=== PATIENT | female | born 1935 | race Caucasian/White ===

== ENCOUNTER 2022-02-23 20:44 | Emergency (ER) | payer MEDICARE ==
[~2022-02-23] VITALS: Ht 152.4 cm; Wt 54.0 kg
--- NOTE | 2022-02-23 23:01 | NUR ---
[facility] ETA: 90 MIN. REPROT GIVEN TO FELISA AT THE FACILITY
[2022-02-23] MEDS ORDERED: ACETAMINOPHEN 325 MG TABLET ONE (23:27)
[2022-02-23] MEDS ORDERED: ACETAMINOPHEN 325 MG TABLET PO ONE (23:30)
[2022-02-23] MEDS ORDERED: TRAM50TA2 PO (23:39)
--- NOTE | 2022-02-24 00:43 | NUR ---
[facility] AT BED SIDE TO [employer] WORKER THE PT
--- NOTE | 2022-02-24 01:09 | NUR ---
PT WAS TRANSFERRED BACK TO THE FACILITY IN STABLE CONDTION
[2022-02-24 01:20] VITALS: BP 159/77
== END 2022-02-24 01:10 ==
LOC: ER 21:01
DX: S02.2XXA Fracture of nasal bones, initial encounter for closed fracture (principal); S00.11XA Contusion of right eyelid and periocular area, initial encounter; R04.0 Epistaxis; W18.30XA Fall on same level, unspecified, initial encounter; Y93.89 Activity, other specified; Y92.89 Other specified places as the place of occurrence of the external cause; Y99.8 Other external cause status
CPT/HCPCS: 99284; 70450; 70486; A6403

== ENCOUNTER 2022-07-21 19:46 | Emergency (ER) | payer MEDICARE ==
[~2022-07-21] VITALS: Ht 154.9 cm; Wt 45.4 kg
[~2022-07-21 19:46] MED LIST: TRAM50TA2 PO
--- NOTE | 2022-07-21 20:10 | NUR ---
[id number] THE [facility]AG C/O L CLAVICLE PAIN S/P FELL OF CHAIR. -KO +DEFORMITY, PT IS ALERT AND ORIENTED. RR EVEN AND NON LABORED. CONNECTED TO MONITOR
--- NOTE | 2022-07-21 21:50 | NUR ---
[facility] CALLED FOR BLS GOING BACK TO SNF PER ISABEL COATS 90 MIN
[2022-07-21] MEDS ORDERED: ACETAMINOPHEN 325 MG TABLET PO ONE (22:30)
[2022-07-21] MEDS ORDERED: ACETAMINOPHEN 325 MG TABLET ONE (22:49)
--- NOTE | 2022-07-21 23:06 | NUR ---
[facility] AT BEDSIDE FOR TRANSPORT TO [facility].
[2022-07-21 23:17] VITALS: BP 146/81
== END 2022-07-21 23:18 ==
LOC: ER 19:50
DX: S46.912A Strain of unspecified muscle, fascia and tendon at shoulder and upper arm level, left arm, initial encounter (principal); S09.90XA Unspecified injury of head, initial encounter; G20 Parkinson's disease; I10 Essential (primary) hypertension; Z79.899 Other long term (current) drug therapy; W07.XXXA Fall from chair, initial encounter; Y93.89 Activity, other specified; Y92.89 Other specified places as the place of occurrence of the external cause; Y99.8 Other external cause status
CPT/HCPCS: 70450-TC; 73030-TC

== ENCOUNTER 2023-06-08 07:34 | Emergency (ER) | payer MEDICARE ==
[~2023-06-08] VITALS: Ht 154.9 cm; Wt 44.0 kg
[2023-06-08 08:22] LABS: BASOPHILS % (AUTO) 0.6 % (0.0-2.0); EOSINOPHILS # (AUTO) 0.2 K/uL (0.0-0.7); EOSINOPHILS % (AUTO) 2.4 % (0.0-6.0); HEMATOCRIT 44 % (33-45); HEMOGLOBIN 14.4 g/dL (11.5-14.8); LYMPHOCYTES # (AUTO) 0.7 K/uL (0.8-4.8); LYMPHOCYTES % (AUTO) 8.7 % (20.0-44.0); MEAN CORPUSCULAR HEMOGLOBIN 30 PG (26.0-33.0); MEAN CORPUSCULAR HGB CONC 33 g/dl (31.0-36.0); MEAN CORPUSCULAR VOLUME 93 fL (82-100); MONOCYTES # (AUTO) 0.7 K/uL (0.1-1.30); NEUTROPHILS # (AUTO) 5.9 K/uL (1.8-8.9); NEUTROPHILS % (AUTO) 78.3 % (43.0-81.0); PLATELET COUNT (AUTO) 226 K/uL (150-450); RED BLOOD CELL COUNT(AUTO) 4.79 MIL/uL (4.0-5.2); RED CELL DISTRIBUTION WIDTH 15.8 % (11.5-15.0); WHITE BLOOD COUNT (AUTO) 7.5 K/uL (4.3-11.0)
[2023-06-08 08:31] LABS: CALCIUM, SERUM 9.3 mg/dL (8.5-10.1); CARBON DIOXIDE 25 mmol/L (21-32); CHLORIDE 101 mmol/L (98-107); CREATININE 0.6 mg/dL (0.6-1.3); GLUCOSE 98 mg/dL (74-106); SODIUM SERUM 135 mmol/L (136-145); UREA NITROGEN, BLOOD 12 mg/dL (7-18)
[2023-06-08 12:52] VITALS: BP 173/87; TEMP 98.2; O2SAT 97
== END 2023-06-08 12:52 ==
LOC: ER 07:36
DX: S32.010A Wedge compression fracture of first lumbar vertebra, initial encounter for closed fracture (principal); S22.080A Wedge compression fracture of T11-T12 vertebra, initial encounter for closed fracture; G89.29 Other chronic pain; M54.50 Low back pain, unspecified; G20.A1 Parkinson's disease without dyskinesia, without mention of fluctuations; I10 Essential (primary) hypertension; W18.30XA Fall on same level, unspecified, initial encounter; Y93.89 Activity, other specified; Y92.89 Other specified places as the place of occurrence of the external cause; Y99.8 Other external cause status
CPT/HCPCS: 36415; 70450-TC; 71045-TC; 71250-TC; 72125-TC; 80048-TC; 84484-TC; 85025-TC

== ENCOUNTER 2024-07-30 15:49 | Emergency (ER) | payer MEDICARE ==
[~2024-07-30] VITALS: Ht 157.5 cm; Wt 54.4 kg
[2024-07-30 16:32] LABS: BASOPHILS % (AUTO) 0.6 % (0.0-2.0); EOSINOPHILS # (AUTO) 0.1 K/uL (0.0-0.7); EOSINOPHILS % (AUTO) 1.5 % (0.0-6.0); HEMATOCRIT 43 % (33-45); HEMOGLOBIN 14.2 g/dL (11.5-14.8); LYMPHOCYTES # (AUTO) 0.9 K/uL (0.8-4.8); LYMPHOCYTES % (AUTO) 15.7 % (20.0-44.0); MEAN CORPUSCULAR HEMOGLOBIN 30 PG (26.0-33.0); MEAN CORPUSCULAR HGB CONC 33 g/dl (31.0-36.0); MEAN CORPUSCULAR VOLUME 92 fL (82-100); MONOCYTES # (AUTO) 0.5 K/uL (0.1-1.30); MONOCYTES % (AUTO) 9.6 % (2.0-12.0); NEUTROPHILS # (AUTO) 4.1 K/uL (1.8-8.9); NEUTROPHILS % (AUTO) 72.6 % (43.0-81.0); PLATELET COUNT (AUTO) 234 K/uL (150-450); RED BLOOD CELL COUNT(AUTO) 4.68 MIL/uL (4.0-5.2); RED CELL DISTRIBUTION WIDTH 15.8 % (11.5-15.0); WHITE BLOOD COUNT (AUTO) 5.7 K/uL (4.3-11.0)
[2024-07-30] MEDS ORDERED: ACET-73 PO (16:37)
[2024-07-30] MEDS ORDERED: HYDR28.340 TP (16:37)
[2024-07-30] MEDS ORDERED: DORZ10DR11 EACHEYE (16:37)
[2024-07-30] MEDS ORDERED: BUPR200T3 PO (16:37)
[2024-07-30] MEDS ORDERED: CARB15DR EACHEYE (16:37)
[2024-07-30] MEDS ORDERED: VENL75CA62 PO (16:37)
[2024-07-30] MEDS ORDERED: CARB1TAB21 PO (16:37)
[2024-07-30] MEDS ORDERED: MELA5TAB PO (16:37)
[2024-07-30] MEDS ORDERED: MIRT7.5T10 PO (16:37)
[2024-07-30] MEDS ORDERED: VENL150C58 PO (16:37)
[2024-07-30] MEDS ORDERED: CYAN-51 PO (16:37)
[2024-07-30] MEDS ORDERED: NETA2.5D RIGHTEYE (16:37)
[2024-07-30] MEDS ORDERED: LEVO50TA8 PO (16:37)
[2024-07-30 16:41] LABS: CALCIUM, SERUM 8.7 mg/dL (8.5-10.1); CARBON DIOXIDE 28 mmol/L (21-32); CHLORIDE 104 mmol/L (98-107); CREATININE 0.9 mg/dL (0.6-1.3); GLUCOSE 87 mg/dL (74-106); SODIUM SERUM 140 mmol/L (136-145); UREA NITROGEN, BLOOD 18 mg/dL (7-18)
[2024-07-30 16:46] LABS: ALANINE AMINOTRANSFERASE 11 U/L (12-78); ALBUMIN 3.8 g/dL (3.4-5.0); ALKALINE PHOSPHATASE 84 U/L (46-116); ASPARTATE AMINOTRANSFERASE 23 U/L (15-37); BILIRUBIN,DIRECT 0.1 mg/dL (0.0-0.2); BILIRUBIN,TOTAL 0.6 mg/dL (0.2-1.0); TOTAL PROTEIN, SERUM 7.5 g/dL (6.4-8.2)
[2024-07-30 18:48] VITALS: BP 135/76; TEMP 98.7; O2SAT 99
[2024-07-30 18:51] LABS: APPEARANCE,URINE CLEAR (CLEAR); BILIRUBIN,URINE NEGATIVE (NEGATIVE); BLOOD, URINE NEGATIVE Ery/uL (NEGATIVE); COLOR,URINE YELLOW (YELLOW); KETONES,URINE TRACE mg/dL (NEGATIVE); LEUKOCYTE ESTERASE ,URINE NEGATIVE (NEGATIVE); NITRITE, URINE NEGATIVE (NEGATIVE); PH,URINE 6.5 (5.0-8.0); PROTEIN,URINE NEGATIVE (NEGATIVE); UGLUCOSE NEGATIVE (NEGATIVE)
[2024-07-30 20:15] LABS: ADD URINE CULTURE NO; BACTERIA,URINE Rare /HPF (None Seen); RBC,URINE 0-2 /HPF (0-2); SQUAMOUS EPITHELIAL CELL,UR Rare /HPF (None Seen); WBC,URINE 0-2 /HPF (0-3)
== END 2024-07-30 18:49 | disposition home or self-care (01) ==
LOC: ER 16:02
DX: R53.1 Weakness (principal); G31.83 Neurocognitive disorder with Lewy bodies; F02.84 Dementia in other diseases classified elsewhere, unspecified severity, with anxiety; F32.A Depression, unspecified; I10 Essential (primary) hypertension; Z79.899 Other long term (current) drug therapy
CPT/HCPCS: 36415; 70450-TC; 71045-TC; 80048-TC; 80076-TC; 81001; 84484-TC; 85025-TC

== ENCOUNTER 2025-01-03 07:53 | Emergency (ER) | payer MEDICARE ==
[~2025-01-03] VITALS: Ht 157.5 cm; Wt 45.4 kg
[~2025-01-03 07:53] MED LIST changes: +ACET-73 PO; +BUPR200T3 PO; +CARB15DR EACHEYE; +CARB1TAB21 PO; +CYAN-51 PO; +DORZ10DR11 EACHEYE; +HYDR28.340 TP; +LEVO50TA8 PO; +MELA5TAB PO; +MIRT7.5T10 PO; +NETA2.5D RIGHTEYE; -TRAM50TA2 PO; +VENL150C58 PO; +VENL75CA62 PO
[2025-01-03 11:10] VITALS: BP 141/81; TEMP 97.5; O2SAT 98
== END 2025-01-03 11:11 | disposition home or self-care (01) ==
LOC: ER 08:02
DX: S80.12XA Contusion of left lower leg, initial encounter (principal); S09.8XXA Other specified injuries of head, initial encounter; F32.A Depression, unspecified; F41.9 Anxiety disorder, unspecified; I10 Essential (primary) hypertension; G20.A1 Parkinson's disease without dyskinesia, without mention of fluctuations; Z79.899 Other long term (current) drug therapy; Z87.39 Personal history of other diseases of the musculoskeletal system and connective tissue; W06.XXXA Fall from bed, initial encounter; Y93.89 Activity, other specified; Y92.89 Other specified places as the place of occurrence of the external cause; Y99.8 Other external cause status
CPT/HCPCS: 70450-TC; 72125-TC; 73564-TC